=== PATIENT | male | born 1965 | race Caucasian/White ===

== ENCOUNTER 2019-08-19 20:18 | Emergency (ER) | payer BC, OTHER ==
[~2019-08-19] VITALS: Ht 175.3 cm; Wt 79.0 kg
[2019-08-19] MEDS ORDERED: ketamine 50 mg/ml 10ml vial IM ONE (21:00)
[2019-08-19] MEDS ORDERED: normal saline 1000ml 1,000 ML IV ONE ×2 (21:55→22:10)
--- NOTE | 2019-08-19 22:25 | NUR ---
ATTEMPTED TO COLLECT URINE BY URINAL. PATIENT UNABLE TO COOPERATE AND FOLLOW DIRECTIONS. ATTEMPTED TO GAIN COOPERATION FOR APROX 5 MINUTES, UTILIZED RUNNING WATER AND WARM WATER SOAK. UNABLE TO PRODUCED SAMPLE. STRAIGHT CATH PERFORMED AT THIS TIME. STRAIGHT CATH YIELDED 800ML OF CLEAR YELLOW URINE
[2019-08-19] MEDS ORDERED: OLANZapine 5mg rapidly disint. tablet PO ONE (22:35)
[2019-08-19 22:44] LABS: URINE AMPHETAMINE SCREEN POSITIVE (Neg); URINE BARBITUATE SCREEN NEGATIVE (Neg); URINE BENZODIAZEPINES SCREEN NEGATIVE (Neg); URINE CANNABINOID SCREEN NEGATIVE (Neg); URINE COCAINE SCREEN NEGATIVE (Neg); URINE METHADONE SCREEN NEGATIVE (Neg); URINE OPIATE SCREEN NEGATIVE (Neg); URINE PHENCYCLIDINE SCREEN NEGATIVE (Neg)
[2019-08-19 22:57] VITALS: BP 186/144
== END 2019-08-19 23:00 ==
LOC: ER 20:19
DX: S00.33XA Contusion of nose, initial encounter (principal); S00.83XA Contusion of other part of head, initial encounter; F10.129 Alcohol abuse with intoxication, unspecified; W22.8XXA Striking against or struck by other objects, initial encounter; Y93.89 Activity, other specified; Y92.89 Other specified places as the place of occurrence of the external cause; Y99.8 Other external cause status; Y90.0 Blood alcohol level of less than 20 mg/100 ml
CPT/HCPCS: 36415; 70450; 70486; 80305; 80320; 96372; 99284; J7030

== ENCOUNTER 2022-11-23 12:37 | Emergency (ER) | payer MEDICAID, SELFPAY ==
[~2022-11-23] VITALS: Ht 172.7 cm; Wt 75.0 kg
[2022-11-23 12:42] VITALS: BP 126/78
[2022-11-23] MEDS ORDERED: AMOX-117 PO (15:01)
[2022-11-23] MEDS ORDERED: PRED50TA PO (15:01)
== END 2022-11-23 15:24 | disposition home or self-care (01) ==
LOC: ER 12:37
DX: L53.8 Other specified erythematous conditions (principal); J02.9 Acute pharyngitis, unspecified
CPT/HCPCS: 73140; 99283

== ENCOUNTER 2023-12-02 03:19 | Emergency (ER) | payer MEDICAID ==
[~2023-12-02] VITALS: Ht 175.3 cm; Wt 77.3 kg
[~2023-12-02 03:19] MED LIST: PRED50TA PO
[2023-12-02 03:26] VITALS: TEMP 98.1
[2023-12-02 05:21] VITALS: BP 111/61; PULSE 88; RESP 16; O2SAT 97
== END 2023-12-02 05:23 | disposition home or self-care (01) ==
LOC: ER 03:19
DX: R05.9 Cough, unspecified (principal); I10 Essential (primary) hypertension; Z59.00 Homelessness unspecified; Z79.899 Other long term (current) drug therapy
CPT/HCPCS: 99283

== ENCOUNTER 2024-02-03 15:25 | Emergency (ER) | payer MEDICAID ==
[~2024-02-03] VITALS: Ht 172.7 cm; Wt 71.9 kg
[2024-02-03 15:38] VITALS: BP 126/86; PULSE 82; RESP 18; TEMP 97.8; O2SAT 98
[2024-02-03] MEDS: TETanus/Pertussis (Acell)/Diphther VAC/PF (Tdap-Adult) 0.5ml syringe IMVAC ONE (17:31)
== END 2024-02-03 17:39 | disposition home or self-care (01) ==
LOC: ER 15:25
DX: S86.812A Strain of other muscle(s) and tendon(s) at lower leg level, left leg, initial encounter (principal); I10 Essential (primary) hypertension; Z59.00 Homelessness unspecified; Z79.899 Other long term (current) drug therapy; X58.XXXA Exposure to other specified factors, initial encounter; Y93.89 Activity, other specified; Y92.89 Other specified places as the place of occurrence of the external cause; Y99.8 Other external cause status
CPT/HCPCS: 73502; 73552; 73564; 73590; 90471; 90715; 99284

== ENCOUNTER 2024-07-30 10:11 | Emergency (ER) | payer MEDICAID ==
[~2024-07-30] VITALS: Ht 172.7 cm; Wt 58.9 kg
[2024-07-30 10:52] VITALS: BP 109/78; PULSE 83; RESP 15; O2SAT 97
[2024-07-30] MEDS ORDERED: fluorescein sod 1mg ophthalmic strip EACHEYE STA (13:27)
[2024-07-30] MEDS ORDERED: proparacaine 0.5% ophthalmic drops 15ml EACHEYE STA (13:27)
[2024-07-30] MEDS ORDERED: COROS RIGHTEYE (14:09)
[2024-07-30 14:33] VITALS: TEMP 97.4
== END 2024-07-30 14:35 | disposition home or self-care (01) ==
LOC: ER 10:12
DX: H10.9 Unspecified conjunctivitis (principal); I10 Essential (primary) hypertension; N40.0 Benign prostatic hyperplasia without lower urinary tract symptoms; Z79.2 Long term (current) use of antibiotics
CPT/HCPCS: 99283